=== PATIENT | female | born 1960 | race American Indian/Alaskan Native ===

== ENCOUNTER 2016-07-31 11:24 | Emergency (ER) | payer SELFPAY ==
[2016-07-31 11:36] VITALS: BP 145/98
[2016-07-31] MEDS ORDERED: NORCO 7.5/325 PO ONE (11:50)
--- NOTE | 2016-07-31 11:57 | Emergency Department Report ---
ED Extremity Problem HPI - General Chief complaint: Extremity Injury, Lower Stated complaint: RT ANKLE AND FOOT INJURY Time Seen by Provider: 07/31/16 11:41 Source: patient Mode of arrival: Wheelchair Limitations: Physical Limitation - History of Present Illness Initial comments: Patient complains of having a slip and fall this morning while mopping her father's floor. Patient complaining of pain to left foot and ankle. Patient denies any head neck or back injury. Patient denies any loss of consciousness, headache, blurred vision, dizziness, chest pain, or shortness of breath. MD Complaint: joint swelling, joint paint -: Sudden Location: right, lower extremity -: Yes arthralgia Radiation: none Severity scale (0 -10): 7 Quality: aching Worsens with: weight bearing, walking - Related Data Home Medications Medication Instructions Recorded Confirmed Last Taken Lisinopril [Zestril] 20 mg PO QDAY 07/31/16 07/31/16 07/31/16 11:00 Previous Rx's Medication Instructions Recorded Last Taken Type traMADol [Ultram 50 MG tab] 50 mg PO Q4HR PRN #20 tablet 07/31/16 Unknown Rx Allergies Allergy/AdvReac Type Severity Reaction Status Date / Time No Known Allergies Allergy Unverified 07/31/16 11:29 ED Review of Systems ROS: Stated complaint: RT ANKLE AND FOOT INJURY Other details as noted in HPI Constitutional: no symptoms reported Eyes: as per HPI ENT: as per HPI Respiratory: no symptoms reported Musculoskeletal: joint swelling, arthralgia ED Past Medical Hx - Past Medical History Hx Hypertension: Yes - Surgical History Additional Surgical History: 1984. TUBAL LIGATION 1991 - Social History Smoking Status: Never Smoker Substance Use Type: Alcohol - Medications Home Medications: Home Medications Medication Instructions Recorded Confirmed Last Taken Type Lisinopril [Zestril] 20 mg PO QDAY 07/31/16 07/31/16 07/31/16 11:00 History traMADol [Ultram 50 MG tab] 50 mg PO Q4HR PRN #20 tablet 07/31/16 Unknown Rx ED Physical Exam - General Limitations: Physical Limitation General appearance: alert, in no apparent distress - Head Head exam: Present: atraumatic - Eye Eye exam: Present: normal appearance, PERRL, EOMI Pupils: Present: normal accommodation - ENT ENT exam: Present: normal exam, mucous membranes moist - Neck Neck exam: Present: normal inspection, full ROM - Respiratory Respiratory exam: Absent: respiratory distress - Extremities Exam Extremities exam: Present: tenderness, normal capillary refill, joint swelling. Absent: pedal edema, calf tenderness - Expanded Lower Extremity Exam Left Foot/Toe exam: Present: tenderness, swelling. Absent: laceration, ecchymosis, deformity, crepidus, dislocation, erythema, calcaneal tenderness, tenderness at base of 5th metatarsal, nail avulsion, subungual hematoma Neuro vascular tendon exam: Present: no vascular compromise. Absent: pulse deficit, abnormal cap refill, motor deficit, sensory deficit, tendon deficit ED Course Vital Signs 07/31/16 07/31/16 11:32 11:56 Temperature 98.4 F Pulse Rate 87 Respiratory 17 16 Rate Blood Pressure 145/98 O2 Sat by Pulse 100 Oximetry Critical care attestation.: If time is entered above; I have spent that time in minutes in the direct care of this critically ill patient, excluding procedure time. ED Disposition Clinical Impression: Ankle sprain Disposition: DISCHARGED TO HOME OR SELFCARE Is pt being admited?: No Condition: Stable Instructions: Ankle Sprain (ED), Ankle Stirrup Splint (ED) Prescriptions: traMADol [Ultram 50 MG tab] 50 mg PO Q4HR PRN #20 tablet PRN Reason: Pain Referrals: PRIMARY CAREMD [Primary Care Provider] - 3-5 Days DENVER HERNANDEZ MD [Staff Physician] - 3-5 Days
--- NOTE | 2016-07-31 12:37 | XRay Report ---
RIGHT ANKLE, 3 views: History: Injury. Findings: Mild soft tissue swelling is identified. No acute osseous abnormality or joint pathology is identified. The fifth metatarsal base is intact. Impression: Soft tissue swelling. No acute osseous injury.
--- NOTE | 2016-07-31 12:37 | XRay Report ---
RIGHT FOOT, 3 views: History: Injury. The bony architecture is intact. Bony alignment is normal. No soft tissue abnormalities are seen. The joint spaces appear preserved. IMPRESSION: Unremarkable right foot.
== END 2016-07-31 13:50 | disposition home or self-care (01) ==
LOC: ED 11:24
DX: S93.491A Sprain of other ligament of right ankle, initial encounter (principal); Y92.89 Other specified places as the place of occurrence of the external cause; W01.0XXA Fall on same level from slipping, tripping and stumbling without subsequent striking against object, initial encounter; Y93.89 Activity, other specified; Y99.8 Other external cause status; I10 Essential (primary) hypertension